=== PATIENT | male | born 1975 | race Caucasian/White ===

== ENCOUNTER 2021-03-19 16:43 | Inpatient (IN) | payer OTHER ==
[2021-03-19 18:22] VITALS: BMI 34.7
[2021-03-19] MEDS ORDERED: BISMUTH SUBSALICYLATE 524 MG/30 ML PO PRN (18:36)
[2021-03-19] MEDS ORDERED: IBUPROFEN 400 MG TABLET (FP) PO PRN (18:36)
[2021-03-19] MEDS ORDERED: ONDANSETRON *ODT* 4 MG TABLET SL PRN (18:36)
[2021-03-19] MEDS ORDERED: METHOCARBAMOL 500 MG TABLET PO PRN (18:36)
[2021-03-19] MEDS ORDERED: MAGNESIUM CITRATE 300 ML BOTTLE PO PRN (18:36)
[2021-03-19] MEDS ORDERED: ACETAMINOPHEN 325 MG TABLET (FP) PO PRN ×2 (18:36)
[2021-03-19] MEDS ORDERED: MAG HYDROX/AL HYDROX/SIMETH 30 ML UNIT-DOSE CUP PO PRN (18:36)
[2021-03-19] MEDS ORDERED: NICOTINE POLACRILEX 2 MG GUM BUC PRN (18:36)
[2021-03-19] MEDS ORDERED: MENTHOL/PHENOL 1 EACH UD MM PRN (18:36)
[2021-03-19] MEDS ORDERED: MAGNESIUM HYDROX 2400MG/30ML ORAL SUSPENSION 30 ML CUP PO PRN (18:36)
[2021-03-19] MEDS ORDERED: cloNIDine HCL 0.1 MG TABLET PO PRN (18:40)
[2021-03-19] MEDS ORDERED: methaDONE HCL 10 MG TABLET (FOR DETOX USE ONLY) PO ONE (18:40)
[2021-03-19] MEDS ORDERED: MELATONIN 5 MG TABLETS PO SCH (22:00)
[2021-03-19] MEDS: THIAMINE HCL 100 MG TABLET (FP) PO SCH (22:18)
[2021-03-20] MEDS ORDERED: methaDONE HCL 10 MG TABLET (FOR DETOX USE ONLY) ONE (09:21)
[2021-03-20] MEDS: NICOTINE 14 MG/24 HOURS TOPICAL PATCH TD SCH (10:07)
[2021-03-20] MEDS: PRENATAL VITAMINS W/ FOLIC ACID TABLET (FP) PO SCH (10:07)
[2021-03-20] MEDS: TOPIRAMATE 25 MG TABLET PO SCH ×2 (10:52→22:16)
[2021-03-20 11:02] LABS: HEMOGLOBIN 12.6 GM/dL (11.7-16.9); MCH 32.2 pg (25.7-33.7); MEAN CELL VOLUME 94.8 fl (80-96); PLATELET COUNT 226 10^3/uL (134-434); RDW 13.4 % (11.9-15.9); WHITE BLOOD COUNT 4.7 K/mm3 (4.0-10.0)
[2021-03-20 11:06] LABS: BLOOD UREA NITROGEN 13.7 mg/dL (7-18); CALCIUM 8.6 mg/dL (8.5-10.1)
[2021-03-20 11:08] LABS: BILIRUBIN,TOTAL 0.8 mg/dL (0.2-1); TOT PROT 6.7 g/dl (6.4-8.2)
[2021-03-20 11:10] LABS: CREATININE 0.7 mg/dL (0.55-1.3)
[2021-03-20] MEDS: PATIENT'S OWN MEDICATION (NON-FORMULARY) (Cariprazine Hcl [Vraylar] 1.5 MG Capsule) PO SCH (12:22)
[2021-03-20] MEDS: MELATONIN 5 MG TABLETS PO SCH (22:16)
[2021-03-20] MEDS: DIVALPROEX NA *ER* EXTEND REL 500 MG TABLET.SA (FP) PO SCH (22:16)
[2021-03-20] MEDS: TAMSULOSIN HCL 0.4 MG CAP PO SCH (22:16)
[2021-03-20] MEDS: THIAMINE HCL 100 MG TABLET (FP) PO SCH (22:16)
[2021-03-21] MEDS ORDERED: methaDONE HCL 10 MG TABLET (FOR DETOX USE ONLY) PO ONE (10:00)
[2021-03-21] MEDS: PATIENT'S OWN MEDICATION (NON-FORMULARY) (Cariprazine Hcl [Vraylar] 1.5 MG Capsule) PO SCH (10:22)
[2021-03-21] MEDS: TOPIRAMATE 25 MG TABLET PO SCH ×2 (10:23→21:25)
[2021-03-21] MEDS: PRENATAL VITAMINS W/ FOLIC ACID TABLET (FP) PO SCH (10:26)
[2021-03-21] MEDS: NICOTINE 14 MG/24 HOURS TOPICAL PATCH TD SCH (10:26)
[2021-03-21] MEDS: TAMSULOSIN HCL 0.4 MG CAP PO SCH (21:25)
[2021-03-21] MEDS: DIVALPROEX NA *ER* EXTEND REL 500 MG TABLET.SA (FP) PO SCH (21:25)
[2021-03-21] MEDS: MELATONIN 5 MG TABLETS PO SCH (21:25)
[2021-03-21] MEDS: THIAMINE HCL 100 MG TABLET (FP) PO SCH (21:25)
[2021-03-22 09:09] VITALS: BP 106/49; PULSE 49; TEMP 96.9
[2021-03-22] MEDS ORDERED: methaDONE HCL 10 MG TABLET (FOR DETOX USE ONLY) ONE (09:20)
[2021-03-22] MEDS: PRENATAL VITAMINS W/ FOLIC ACID TABLET (FP) PO SCH (10:05)
[2021-03-22] MEDS: PATIENT'S OWN MEDICATION (NON-FORMULARY) (Cariprazine Hcl [Vraylar] 1.5 MG Capsule) PO SCH (10:05)
[2021-03-22] MEDS: TOPIRAMATE 25 MG TABLET PO SCH (10:07)
[2021-03-22] MEDS: NICOTINE 14 MG/24 HOURS TOPICAL PATCH TD SCH (10:07)
[2021-03-23] MEDS ORDERED: methaDONE HCL 10 MG TABLET (FOR DETOX USE ONLY) PO ONE (10:00)
== END 2021-03-22 11:00 | disposition left against medical advice (07) | DRG 770 ==
LOC: YASAS 16:43 → Y6N 18:53
PROVIDERS: ADMIT Allergy & Immunology; ATTEND Allergy & Immunology
PROC: HZ2ZZZZ Detoxification Services for Substance Abuse Treatment (ICD-10-PCS; principal; 2021-03-19)
DX: F11.23 Opioid dependence with withdrawal (principal); F17.210 Nicotine dependence, cigarettes, uncomplicated; F19.282 Other psychoactive substance dependence with psychoactive substance-induced sleep disorder; F19.24 Other psychoactive substance dependence with psychoactive substance-induced mood disorder; F31.9 Bipolar disorder, unspecified; F41.8 Other specified anxiety disorders; G40.909 Epilepsy, unspecified, not intractable, without status epilepticus; N40.0 Benign prostatic hyperplasia without lower urinary tract symptoms; Z62.810 Personal history of physical and sexual abuse in childhood
CPT/HCPCS: 36415; 80053; 80164; 85027; 86780; 93005; 93010; C9803; J0735; U0003; U0005

== ENCOUNTER 2022-08-20 11:35 | Inpatient (IN) | payer OTHER ==
[2022-08-20 12:07] VITALS: BMI 27.9
[2022-08-20] MEDS ORDERED: NICOTINE 10 MG CARTRIDGE (INHALER) IH PRN (13:31)
[2022-08-20] MEDS ORDERED: ONDANSETRON *ODT* 4 MG TABLET SL PRN (13:31)
[2022-08-20] MEDS ORDERED: LOPERAMIDE HCL 2 MG CAPSULE PO PRN (13:31)
[2022-08-20] MEDS ORDERED: IBUPROFEN 400 MG TABLET (FP) PO PRN (13:31)
[2022-08-20] MEDS ORDERED: ACETAMINOPHEN 325 MG TABLET (FP) PO PRN (13:31)
[2022-08-20] MEDS ORDERED: hydrOXYzine PAMOATE 25 MG CAPSULE (FP) PO PRN (13:31)
[2022-08-20] MEDS ORDERED: guaiFENesin 600 MG TABLET.ER (FP) PO PRN (13:31)
[2022-08-20] MEDS ORDERED: BENZONATATE 200 MG CAPSULE PO PRN (13:31)
[2022-08-20] MEDS ORDERED: MAG HYDROX/AL HYDROX/SIMETH 30 ML UNIT-DOSE CUP PO PRN (13:31)
[2022-08-20] MEDS ORDERED: P-EPHED 60MG/TRIPROLIDI 2.5MG TABLET PO PRN (13:31)
[2022-08-20] MEDS ORDERED: NALOXONE HCL (KLOXXADO) 8 MG SPRAY NS PRN (13:31)
[2022-08-20] MEDS ORDERED: MELATONIN 5 MG TABLETS PO PRN (13:31)
[2022-08-20] MEDS ORDERED: IBUPROFEN 600 MG TABLET (FP) PO PRN (13:31)
[2022-08-20] MEDS ORDERED: BENZOCAINE/MENTHOL (CHLORASEPTIC ) LOZENGE MM PRN (13:31)
[2022-08-20] MEDS ORDERED: DICYCLOMINE HCL 10 MG CAPSULE PO PRN (13:31)
[2022-08-20] MEDS ORDERED: NALOXONE HCL 0.4 MG/ML VIAL IM PRN (13:31)
[2022-08-20] MEDS ORDERED: POLYETHYLENE GLYCOL (HEALTHYLAX) 3350 17 GM PACKET PO PRN (13:31)
[2022-08-20] MEDS ORDERED: BISMUTH SUBSALICYLATE 524 MG/30 ML PO PRN (13:31)
[2022-08-20] MEDS ORDERED: MAGNESIUM HYDROX 2400MG/30ML ORAL SUSPENSION 30 ML CUP PO PRN (13:31)
[2022-08-20] MEDS: TAMSULOSIN HCL 0.4 MG CAP PO SCH (14:23)
[2022-08-20] MEDS: METHOCARBAMOL 500 MG TABLET PO PRN (19:17)
[2022-08-20] MEDS: TOPIRAMATE 25 MG TABLET PO SCH (22:11)
[2022-08-20] MEDS: THIAMINE HCL 100 MG TABLET (FP) PO SCH (22:11)
[2022-08-21] MEDS: DIVALPROEX NA *ER* EXTEND REL 500 MG TABLET.SA (FP) PO SCH ×2 (01:02→22:44)
[2022-08-21] MEDS ORDERED: cloNIDine HCL 0.1 MG TABLET PO PRN (09:42)
[2022-08-21] MEDS ORDERED: methaDONE HCL 10 MG TABLET (FOR DETOX USE ONLY) PO ONE (09:42)
[2022-08-21] MEDS ORDERED: diazePAM 5 MG TABLET PO PRN (09:43)
[2022-08-21] MEDS: TAMSULOSIN HCL 0.4 MG CAP PO SCH (09:46)
[2022-08-21] MEDS ORDERED: PRENATAL VITAMINS W/ FOLIC ACID TABLET (FP) PO SCH (10:00)
[2022-08-21 11:12] LABS: HEMATOCRIT 37.6 % (35.4-49); HEMOGLOBIN 12.7 GM/dL (11.7-16.9); MCH 31.3 pg (25.7-33.7); MCHC 33.9 g/dl (32.0-35.9); MEAN CELL VOLUME 92.4 fl (80-96); MEAN PLT VOLUME 8.7 fl (7.5-11.1); PLATELET COUNT 170 10^3/uL (134-434); RBC 4.06 M/mm3 (4.00-5.60); RDW 14.4 % (11.9-15.9); WHITE BLOOD COUNT 4.3 K/mm3 (4.0-10.0)
[2022-08-21 11:14] LABS: BLOOD UREA NITROGEN 12.9 mg/dL (7-18); CALCIUM 8.7 mg/dL (8.5-10.1)
[2022-08-21 11:17] LABS: CREATININE 0.7 mg/dL (0.55-1.3)
[2022-08-21 11:19] LABS: BILIRUBIN,TOTAL 0.4 mg/dL (0.2-1); TOT PROT 6.2 g/dl (6.4-8.2)
[2022-08-21] MEDS: risperiDONE 0.5 MG TABLET PO SCH ×2 (12:16→22:05)
[2022-08-21] MEDS: METHOCARBAMOL 500 MG TABLET PO PRN (18:04)
[2022-08-21] MEDS ORDERED: MELATONIN 5 MG TABLETS PO PRN (22:00)
[2022-08-21] MEDS: TOPIRAMATE 25 MG TABLET PO SCH (22:05)
[2022-08-21] MEDS: THIAMINE HCL 100 MG TABLET (FP) PO SCH (22:05)
[2022-08-22] MEDS: TAMSULOSIN HCL 0.4 MG CAP PO SCH (08:43)
[2022-08-22 09:01] VITALS: BP 101/67; PULSE 69; RESP 20; TEMP 98
[2022-08-23] MEDS ORDERED: methaDONE HCL 10 MG TABLET (FOR DETOX USE ONLY) PO ONE (10:00)
[2022-08-25] MEDS ORDERED: methaDONE HCL 10 MG TABLET (FOR DETOX USE ONLY) PO ONE (10:00)
== END 2022-08-22 08:50 | disposition left against medical advice (07) | DRG 770 ==
LOC: YASAS 11:35 → Y3N 13:58
PROVIDERS: ADMIT Allergy & Immunology; ATTEND Surgery
PROC: HZ2ZZZZ Detoxification Services for Substance Abuse Treatment (ICD-10-PCS; principal; 2022-08-20)
DX: F11.23 Opioid dependence with withdrawal (principal); F14.20 Cocaine dependence, uncomplicated; F17.210 Nicotine dependence, cigarettes, uncomplicated; F31.9 Bipolar disorder, unspecified; F19.282 Other psychoactive substance dependence with psychoactive substance-induced sleep disorder; F19.24 Other psychoactive substance dependence with psychoactive substance-induced mood disorder; G40.909 Epilepsy, unspecified, not intractable, without status epilepticus; N40.0 Benign prostatic hyperplasia without lower urinary tract symptoms; Z62.810 Personal history of physical and sexual abuse in childhood
CPT/HCPCS: 36415; 80053; 80164; 83036; 85027; 86780; C9803-CS; U0003; U0005

== ENCOUNTER 2022-09-22 20:37 | Inpatient (IN) | payer OTHER ==
[2022-09-22 21:23] VITALS: BMI 25.9
[2022-09-22] MEDS ORDERED: NALOXONE HCL 0.4 MG/ML VIAL IM PRN (23:08)
[2022-09-22] MEDS ORDERED: BENZOCAINE/MENTHOL (CHLORASEPTIC ) LOZENGE MM PRN (23:08)
[2022-09-22] MEDS ORDERED: POLYETHYLENE GLYCOL (HEALTHYLAX) 3350 17 GM PACKET PO PRN (23:08)
[2022-09-22] MEDS ORDERED: DICYCLOMINE HCL 10 MG CAPSULE PO PRN (23:08)
[2022-09-22] MEDS ORDERED: NICOTINE POLACRILEX 2 MG GUM BUC PRN (23:08)
[2022-09-22] MEDS ORDERED: METHOCARBAMOL 500 MG TABLET PO PRN (23:08)
[2022-09-22] MEDS ORDERED: IBUPROFEN 400 MG TABLET (FP) PO PRN (23:08)
[2022-09-22] MEDS ORDERED: BISMUTH SUBSALICYLATE 524 MG/30 ML PO PRN (23:08)
[2022-09-22] MEDS ORDERED: NALOXONE HCL (KLOXXADO) 8 MG SPRAY NS PRN (23:08)
[2022-09-22] MEDS ORDERED: ACETAMINOPHEN 325 MG TABLET (FP) PO PRN (23:08)
[2022-09-22] MEDS ORDERED: MAG HYDROX/AL HYDROX/SIMETH 30 ML UNIT-DOSE CUP PO PRN (23:08)
[2022-09-22] MEDS ORDERED: P-EPHED 60MG/TRIPROLIDI 2.5MG TABLET PO PRN (23:08)
[2022-09-22] MEDS ORDERED: MAGNESIUM HYDROX 2400MG/30ML ORAL SUSPENSION 30 ML CUP PO PRN (23:08)
[2022-09-22] MEDS ORDERED: hydrOXYzine PAMOATE 25 MG CAPSULE (FP) PO PRN (23:08)
[2022-09-22] MEDS ORDERED: ONDANSETRON *ODT* 4 MG TABLET SL PRN (23:08)
[2022-09-22] MEDS ORDERED: guaiFENesin 600 MG TABLET.ER (FP) PO PRN (23:08)
[2022-09-22] MEDS ORDERED: IBUPROFEN 600 MG TABLET (FP) PO PRN (23:08)
[2022-09-22] MEDS ORDERED: LOPERAMIDE HCL 2 MG CAPSULE PO PRN (23:08)
[2022-09-22] MEDS ORDERED: BENZONATATE 200 MG CAPSULE PO PRN (23:08)
[2022-09-23 06:39] VITALS: RESP 18
[2022-09-23] MEDS ORDERED: TAMSULOSIN HCL 0.4 MG CAP PO SCH (08:30)
[2022-09-23] MEDS ORDERED: cloNIDine HCL 0.1 MG TABLET PO PRN (09:37)
[2022-09-23] MEDS ORDERED: methaDONE HCL 10 MG TABLET (FOR DETOX USE ONLY) PO ONE (09:37)
[2022-09-23] MEDS ORDERED: TOPIRAMATE 25 MG TABLET PO SCH (10:00)
[2022-09-23] MEDS ORDERED: PRENATAL VITAMINS W/ FOLIC ACID TABLET (FP) PO SCH (10:00)
[2022-09-23 11:38] LABS: HEMATOCRIT 39.1 % (35.4-49); HEMOGLOBIN 13.4 GM/dL (11.7-16.9); MCH 31.9 pg (25.7-33.7); MCHC 34.3 g/dl (32.0-35.9); MEAN CELL VOLUME 93.2 fl (80-96); MEAN PLT VOLUME 8.6 fl (7.5-11.1); PLATELET COUNT 217 10^3/uL (134-434); RDW 14.8 % (11.9-15.9); WHITE BLOOD COUNT 5.6 K/mm3 (4.0-10.0)
[2022-09-23 11:42] LABS: POTASSIUM 4.1 mmol/L (3.5-5.1)
[2022-09-23 11:56] LABS: ALBUMIN 3.4 g/dl (3.4-5.0); BLOOD UREA NITROGEN 15.7 mg/dL (7-18); CALCIUM 8.7 mg/dL (8.5-10.1)
[2022-09-23 11:58] LABS: TOT PROT 7.2 g/dl (6.4-8.2)
[2022-09-23 11:59] LABS: CREATININE 0.8 mg/dL (0.55-1.3)
[2022-09-23 12:03] LABS: BILIRUBIN,TOTAL 0.6 mg/dL (0.2-1)
[2022-09-23 13:02] VITALS: BP 125/76; PULSE 60; TEMP 97.8
[2022-09-23] MEDS ORDERED: MELATONIN 5 MG TABLETS PO SCH (22:00)
[2022-09-23] MEDS ORDERED: THIAMINE HCL 100 MG TABLET (FP) PO SCH (22:00)
[2022-09-23] MEDS ORDERED: DIVALPROEX NA *ER* EXTEND REL 500 MG TABLET.SA (FP) PO SCH (22:00)
[2022-09-23] MEDS ORDERED: risperiDONE 0.5 MG TABLET PO SCH (22:00)
[2022-09-25] MEDS ORDERED: methaDONE HCL 10 MG TABLET (FOR DETOX USE ONLY) PO ONE (10:00)
== END 2022-09-23 16:58 | disposition home or self-care (01) | DRG 773 ==
LOC: YASAS 20:37 → Y6N 22:46
PROVIDERS: ADMIT Allergy & Immunology; ATTEND Surgery
PROC: HZ2ZZZZ Detoxification Services for Substance Abuse Treatment (ICD-10-PCS; principal; 2022-09-22)
DX: F11.23 Opioid dependence with withdrawal (principal); F14.20 Cocaine dependence, uncomplicated; F17.210 Nicotine dependence, cigarettes, uncomplicated; F19.24 Other psychoactive substance dependence with psychoactive substance-induced mood disorder; G40.909 Epilepsy, unspecified, not intractable, without status epilepticus; N40.0 Benign prostatic hyperplasia without lower urinary tract symptoms; Z62.810 Personal history of physical and sexual abuse in childhood
CPT/HCPCS: 36415; 80053; 80164; 85027; 86780; 87811; C9803-CS; U0003; U0005

== ENCOUNTER 2024-01-09 13:33 | Inpatient (IN) | payer OTHER ==
[2024-01-09 15:59] VITALS: BMI 32.2
[2024-01-09] MEDS ORDERED: ONDANSETRON *ODT* 4 MG TABLET SL PRN (16:12)
[2024-01-09] MEDS ORDERED: DICYCLOMINE HCL 10 MG CAPSULE PO PRN (16:12)
[2024-01-09] MEDS ORDERED: BENZOCAINE/MENTHOL (CHLORASEPTIC ) LOZENGE MM PRN (16:12)
[2024-01-09] MEDS ORDERED: BISMUTH SUBSALICYLATE 524 MG/30 ML PO PRN (16:12)
[2024-01-09] MEDS ORDERED: BENZONATATE 200 MG CAPSULE PO PRN (16:12)
[2024-01-09] MEDS ORDERED: POLYETHYLENE GLYCOL (HEALTHYLAX) 3350 17 GM PACKET PO PRN (16:12)
[2024-01-09] MEDS ORDERED: P-EPHED 60MG/TRIPROLIDI 2.5MG TABLET PO PRN (16:12)
[2024-01-09] MEDS ORDERED: guaiFENesin 600 MG TABLET.ER (FP) PO PRN (16:12)
[2024-01-09] MEDS ORDERED: MAGNESIUM HYDROX 2400MG/30ML ORAL SUSPENSION 30 ML CUP PO PRN (16:12)
[2024-01-09] MEDS ORDERED: IBUPROFEN 400 MG TABLET (FP) PO PRN (16:12)
[2024-01-09] MEDS ORDERED: NICOTINE POLACRILEX 2 MG GUM BUC PRN (16:12)
[2024-01-09] MEDS ORDERED: NALOXONE (NARCAN) HCL 4 MG/0.1 ML SPRAY NS PRN (16:12)
[2024-01-09] MEDS ORDERED: MAG HYDROX/AL HYDROX/SIMETH 30 ML UNIT-DOSE CUP PO PRN (16:12)
[2024-01-09] MEDS ORDERED: ACETAMINOPHEN 325 MG TABLET (FP) PO PRN (16:12)
[2024-01-09] MEDS ORDERED: NICOTINE POLACRILEX 2 MG LOZENGE BC PRN (16:12)
[2024-01-09] MEDS ORDERED: NALOXONE HCL 0.4 MG/ML VIAL IM PRN (16:12)
[2024-01-09] MEDS ORDERED: LOPERAMIDE HCL 2 MG CAPSULE PO PRN (16:12)
[2024-01-09] MEDS: methaDONE HCL 10 MG TABLET (FOR DETOX USE ONLY) PO ONE (21:02)
[2024-01-09] MEDS: TOPIRAMATE 25 MG TABLET PO SCH (21:09)
[2024-01-09] MEDS: METHYL SALICYLATE/MENTHOL 30 GM TUBE TP SCH (21:09)
[2024-01-09] MEDS: MELATONIN 5 MG TABLETS PO SCH (21:09)
[2024-01-09] MEDS: THIAMINE 100 MG TABLET PO SCH (21:09)
[2024-01-09] MEDS ORDERED: PATIENT'S OWN MEDICATION (NON-FORMULARY) (Topiramate [Topamax] 50 MG Tablet) PO SCH (22:00)
[2024-01-09] MEDS: DIVALPROEX NA *ER* EXTEND REL 500 MG TABLET.SA (FP) PO SCH (22:52)
[2024-01-10] MEDS: TAMSULOSIN HCL 0.4 MG CAP PO SCH (08:32)
[2024-01-10 09:22] LABS: POTASSIUM 4.1 mmol/L (3.5-5.1)
[2024-01-10 09:27] LABS: HEMOGLOBIN 12.3 GM/dL (11.7-16.9); MCH 31.4 pg (25.7-33.7); MCHC 33.3 g/dl (32.0-35.9); MEAN CELL VOLUME 94.1 fl (80-96); MEAN PLT VOLUME 8.1 fl (7.5-11.1); PLATELET COUNT 244 10^3/uL (134-434); RBC 3.93 M/mm3 (4.00-5.60); RDW 14.9 % (11.9-15.9); WHITE BLOOD COUNT 6.2 K/mm3 (4.0-10.0)
[2024-01-10 09:29] LABS: BLOOD UREA NITROGEN 16.3 mg/dL (7-18); CALCIUM 8.4 mg/dL (8.5-10.1)
[2024-01-10 09:33] LABS: BILIRUBIN,TOTAL 0.7 mg/dL (0.2-1); CREATININE 0.9 mg/dL (0.55-1.3); TOT PROT 6.8 g/dl (6.4-8.2)
[2024-01-10] MEDS: PRENATAL VITAMINS W/ FOLIC ACID TABLET (FP) PO SCH (10:42)
[2024-01-10] MEDS: IBUPROFEN 600 MG TABLET (FP) PO PRN (16:28)
[2024-01-10] MEDS: MELATONIN 5 MG TABLETS PO SCH (22:35)
[2024-01-10] MEDS: cloNIDine HCL 0.1 MG TABLET PO PRN (22:36)
[2024-01-10] MEDS: METHOCARBAMOL 500 MG TABLET PO PRN (22:36)
[2024-01-11] MEDS: methaDONE HCL 10 MG TABLET (FOR DETOX USE ONLY) PO ONE (09:39)
[2024-01-11] MEDS: LIDOCAINE 5% TOPICAL PATCH TP SCH (11:06)
[2024-01-11] MEDS: LIDOCAINE PATCH REMOVAL MC SCH (22:33)
[2024-01-13] MEDS: methaDONE HCL 10 MG TABLET PO SCH (09:03)
[2024-01-13] MEDS ORDERED: methaDONE HCL 10 MG TABLET (FOR DETOX USE ONLY) PO ONE (10:00)
[2024-01-14 09:54] VITALS: BP 136/80; PULSE 66; RESP 16; TEMP 97.1
== END 2024-01-14 10:05 | disposition home or self-care (01) | DRG 773 ==
LOC: YASAS 13:33 → Y6N 17:26
PROVIDERS: ADMIT Neuromusculoskeletal Medicine & OMM; ATTEND Psychiatry & Neurology Pain Medicine
PROC: HZ2ZZZZ Detoxification Services for Substance Abuse Treatment (ICD-10-PCS; principal; 2024-01-09)
DX: F11.23 Opioid dependence with withdrawal (principal); F14.20 Cocaine dependence, uncomplicated; F17.210 Nicotine dependence, cigarettes, uncomplicated; F19.24 Other psychoactive substance dependence with psychoactive substance-induced mood disorder; F41.9 Anxiety disorder, unspecified; F32.A Depression, unspecified; G40.909 Epilepsy, unspecified, not intractable, without status epilepticus; N40.0 Benign prostatic hyperplasia without lower urinary tract symptoms; M25.561 Pain in right knee; M25.562 Pain in left knee; G89.29 Other chronic pain; Z62.810 Personal history of physical and sexual abuse in childhood
CPT/HCPCS: 36415; 80053; 80164; 80305; 85027; 86780; 93005; 93010